=== PATIENT | male | born 1935 | race Caucasian/White ===

== ENCOUNTER 2017-08-19 01:48 | Emergency (ER) | payer MEDICARE, OTHER ==
--- NOTE | 2017-08-19 02:01 | C.PDOC ---
History Of Present Illness 82 year old male presents to the emergency department after being brought in by ambulance from [facility] after being found on the floor. Patient reports that he got out of bed to get water, when he slipped and fell from his bed. Patient denies loss of consciousness. - HPI Time Seen by Provider: 08/19/17 02:00 Chief Complaint (Nursing): Trauma History Per: Patient, EMS, Other (fdc) History/Exam Limitations: no limitations Onset/Duration Of Symptoms: Hrs Severity: Moderate Pain Scale Rating Of: 4 - Fall Fall:Prior To Injury: Slipped Past Medical History Reviewed: Historical Data, Nursing Documentation, Vital Signs Vital Signs: Last Vital Signs Temp 97.9 F 08/19/17 02:13 Pulse 60 08/19/17 02:13 Resp 18 08/19/17 02:13 BP 162/85 H 08/19/17 02:13 Pulse Ox 96 08/19/17 02:13 - Medical History PMH: Dementia, Depression, HTN, Hypercholesterolemia, Hyperlipidemia Denies: Diabetes, Hepatitis, HIV, Chronic Kidney Disease, Seizures, Sexually Transmitted Disease Surgical History: Pacemaker - [facility] ALCOHOL DETOXIFICATION (11/06/00) OTHER ENDOSCOPY OF SM INTEST (11/06/00) Family History: States: No Known Family Hx - Social History Hx Alcohol Use: No Hx Substance Use: No - Immunization History Hx Tetanus Toxoid Vaccination: No Hx Influenza Vaccination: No Hx Pneumococcal Vaccination: No Review Of Systems Neurological: Negative for: Other (loss of consciousness) Physical Exam - Physical Exam Appears: Well, Non-toxic, No Acute Distress Skin: Warm, Dry Head: Atraumatic, No Other (crepitus) Eye(s): bilateral: Normal Inspection, PERRL, EOMI Ear(s): Bilateral: Normal Neck: Supple Chest: Symmetrical Cardiovascular: Rhythm Regular, No Murmur Respiratory: No Rales, No Rhonchi, No Wheezing Gastrointestinal/Abdominal: Bowel Sounds (good), Soft, No Tenderness, No Guarding, No Rebound Extremity: Normal ROM (in hips), No Tenderness Neurological/Psych: Oriented x3, Normal Speech, Normal Cognition ED Course And Treatment - Laboratory Results Result Diagrams: 08/19/17 03:31 08/19/17 03:31 O2 Sat by Pulse Oximetry: 96 Pulse Ox Interpretation: Normal Progress Note: Plan: CT Head. BMP. CBC. PTT. Prothrombin Time. Glucose POC Reevaluation Time: 04:37 Reassessment Condition: Improved Disposition Counseled Patient/Family Regarding: Studies Performed, Diagnosis, Need For Followup - Disposition Referrals: Jignesh Antunez DO [[facility]] - Disposition: HOME/ ROUTINE Disposition Time: 02:00 Condition: FAIR Forms: [facility] ([place]) - POA Present On Arrival: Falls Or Trauma - Clinical Impression Clinical Impression: Fall - Scribe Statement The provider has reviewed the documentation as recorded by the Scribe (Mick Ragsdale) All medical record entries made by the Scribe were at my direction and personally dictated by me. I have reviewed the chart and agree that the record accurately reflects my personal performance of the history, physical exam, medical decision making, and the department course for this patient. I have also personally directed, reviewed, and agree with the discharge instructions and disposition.
[2017-08-19 02:13] VITALS: TEMP 97.9
[2017-08-19 03:37] LABS: BASO # 0.1 K/uL (0.0-0.2); BASO % 0.7 % (0.0-2.0); EOS # 0.3 K/uL (0.0-0.7); EOS % 4.4 % (0.0-4.0); HEMOGLOBIN 11.7 g/dL (12.0-18.0); LYMPH % 12.9 % (20.0-40.0); MEAN CELL VOLUME 80.4 fL (80.0-94.0); MEAN CORPUSCULAR HEMOGLOBIN 26.8 pg (27.0-31.0); MEAN CORPUSCULAR HGB CONC 33.3 g/dL (33.0-37.0); MEAN PLATELET VOLUME 7.8 fL (7.2-11.7); MONO # 0.5 K/uL (0.0-0.8); MONO % 7.2 % (0.0-10.0); NEUT # 5.7 K/uL (1.8-7.0); NEUT % 74.8 % (50.0-75.0); RBC 4.37 Mil/uL (4.40-5.90); RED CELL DISTRIBUTION WIDTH 14.8 % (11.5-14.5); WHITE BLOOD COUNT 7.6 K/uL (4.8-10.8)
[2017-08-19 03:48] LABS: PROTHROMBIN TIME 10.4 SECONDS (9.7-12.2)
[2017-08-19 04:06] LABS: CALCIUM 9.1 mg/dl (8.6-10.4)
--- NOTE | 2017-08-19 04:17 | CT ---
EXAM: CT Head Without Intravenous Contrast CLINICAL HISTORY: 82 years old, male; Injury or trauma; Fall; Initial encounter; Concussion / head injury; Consciousness not specified; Injury date: 08/19/17; Additional info: R/O bleed, S/P fall TECHNIQUE: Axial computed tomography images of the head/brain without intravenous contrast. All CT scans at this facility use one or more dose reduction techniques, viz.: automated exposure control; ma/kV adjustment per patient size (including targeted exams where dose is matched to indication; i.e. head); or iterative reconstruction technique. Coronal and sagittal reformatted images were created and reviewed. COMPARISON: No relevant prior studies available. FINDINGS: Brain: Moderate atrophy. No intracranial hemorrhage. No mass. Few scattered foci of decreased attenuation within periventricular/subcortical white matter. No edema. Ventricles: No hydrocephalus. Bones/joints: No acute fracture. Chronic fracture deformity of LEFT zygomatic arch. Soft tissues: Unremarkable. Vasculature: Atherosclerotic disease of intracranial arteries. Sinuses: Mild focal mucosal thickening +/- fluid of LEFT sphenoid sinus. Scattered minimal to mild mucosal thickening of remaining sinuses. Mastoid air cells: No mastoid effusion. Orbits: Unremarkable as visualized. IMPRESSION: 1. No intracranial hemorrhage. 2. Nonspecific white matter changes. 3. Incidental/non-acute findings are described above.
[2017-08-19 05:29] VITALS: BP 167/78; PULSE 91; RESP 20; O2SAT 97
== END 2017-08-19 05:35 ==
LOC: C.ER 01:48
DX: Z03.89 Encounter for observation for other suspected diseases and conditions ruled out (principal); W06.XXXA Fall from bed, initial encounter; E78.00 Pure hypercholesterolemia, unspecified; I10 Essential (primary) hypertension